=== PATIENT | male | born 1975 | race Caucasian/White ===

== ENCOUNTER 2017-04-01 08:33 | Inpatient (IN) | payer OTHER ==
[~2017-04-01] VITALS: Ht 185.4 cm; Wt 99.8 kg
[2017-04-01] MEDS ORDERED: LORAZEPAM 1 MG TABLET PO PRN (23:15)
[2017-04-01] MEDS ORDERED: MIRALAX 17 GM POWD.PACK PO PRN (23:15)
[2017-04-01] MEDS ORDERED: DICYCLOMINE HCL 20 MG TABLET PO PRN (23:15)
[2017-04-01] MEDS ORDERED: DOCUSATE SODIUM 250 MG CAPSULE PO PRN (23:15)
[2017-04-01] MEDS ORDERED: ONDANSETRON 4 MG/2 ML VIAL IM PRN (23:15)
[2017-04-01] MEDS ORDERED: MAG HYDROX/AL HYDROX/SIMETH 30 ML LIQUID UDC PO PRN (23:15)
[2017-04-01] MEDS ORDERED: diphenhydrAMINE 50 MG CAPSULE PO PRN (23:15)
[2017-04-01] MEDS ORDERED: LOPERAMIDE HCL 2 MG CAPSULE PO PRN ×2 (23:15)
[2017-04-01] MEDS ORDERED: BUPRENORPHINE HCL 2 MG TAB.SUBL SL PRN (23:15)
[2017-04-01] MEDS ORDERED: ONDANSETRON ODT 4 MG TAB.RAPDIS SL PRN (23:15)
[2017-04-01] MEDS ORDERED: MAGNESIUM HYDROXIDE 30 ML LIQUID UDC PO PRN (23:15)
[2017-04-01 23:30] VITALS: BP 148/88
--- NOTE | 2017-04-01 23:30 | NUR ---
Intake Assessment Assessment done at intake office. Patient is alert & oriented x4. Patient is ambulatory and wears a prosthetic leg on his right leg. Patient observed to be steady when walking. Speech is clear and audible. Patient does not look intoxicated. Pt appears calm & cooperative during interviews. Vitals noted B/P 148/88, ND 80, RR 18, Temp 98.5, O2Sat 98%. Pt is here for Opiate dependence. Patient has Anxiety, Depression & White Coat Syndrome. No seizure history noted. Pt denies any food and drug allergies. Patient brought home medications. Explained to pt unit protocols as well as handling and destruction any controlled substances/prescriptions brought to the facility. Patient verbalized understanding.
[2017-04-01 23:41] LABS: BASOPHILS # (AUTO) 0.1 K/uL (0.0-8.0); BASOPHILS % (AUTO) 0.7 % (0.0-2.0); EOSINOPHILS # (AUTO) 0.1 K/uL (0.0-0.7); EOSINOPHILS % (AUTO) 1.2 % (0.0-7.0); HEMATOCRIT 41.9 % (36.7-47.1); HEMOGLOBIN 14.2 g/dL (12.5-16.3); LYMPHOCYTES # (AUTO) 3.8 K/uL (20.0-40.0); LYMPHOCYTES % (AUTO) 36.3 % (20.5-51.5); MEAN CORPUSCULAR HEMOGLOBIN 29.6 uug (23.8-33.4); MEAN CORPUSCULAR HGB CONC 34 g/dL (32.5-36.3); MEAN CORPUSCULAR VOLUME 87.2 fL (73.0-96.2); MONOCYTES # (AUTO) 0.6 K/uL (2.0-10.0); MONOCYTES % (AUTO) 5.8 % (0.0-11.0); NEUTROPHILS # (AUTO) 5.9 K/uL (1.8-8.9); PLATELET COUNT (AUTO) 246 K/uL (152-348); WHITE BLOOD COUNT (AUTO) 10.5 K/uL (3.6-10.2)
--- NOTE | 2017-04-02 | NUR ---
ADMISSION NOTE: Patient is a 41 y.o male admitted at [facility] at approximately 2347 pm of 04/01/17 for medically supervised withdrawal from Opiates. Body search done and skin check performed, no contraband found. Scratch noted on his left lower back. No bleeding noted. Pt is 6'1" tall and weighs 220 lbs in a standing scale. Pt is cooperative during assessment. Patient is oriented to floor unit and room. Patient follows a regular diet at home with no known food and drug allergies. Pt wishes to be full Code. Patient is alert & oriented x4, ambulatory with a steady gait. Patient wears a prosthesis on his right leg. Speech is clear and audible. Patient does not look anxious and he is cooperative during interview. No shortness of breath noted. Respiration even & unlabored. Abdomen soft & non-distended. Bowel sounds active in all four quadrants. No nausea/vomiting noted. Patient complains of 5/10 pain on his stump and mild body aches. Patient also complains of slight sweating & chills. No hand tremors noted. COWS 3 noted at this time. Patient noted with past medical history of Anxiety, Depression, Below the knee amputation (2006) & White Coat Syndome. Pt denies thoughts of suicide in the past. No suicide attempts noted. Pt currently denies SI/HI. Pt was able to provide urine sample for drug screen upon admission and is voiding clear yellow urine with no problems. Substance use: 1. Oxycontin- Pt has been taking Oxycontin for 10 years. Patient has been using 120mg daily for the past 5 days. Patient last took 30mg @ 9pm prior to admission. 2. Dilaudid- Pt has been using Dilaudid together with the Oxycontin for 10 years. In the past 4 weeks, patient has used Dilaudid 40mg daily alone but stopped using it 5 days ago and took Oxycontin. 3. Marijuana- Pt started smoking Marijuana since he was 15 years old. Patient smokes daily in an unspecified amount. Last smoke was yesterday 03/31/17. Patient reported that he has never been to treatment and that this is his 1st treatment. Patient denies being hospitalized in the last 30 days. Patient reports his longest period of sobriety was for 2-3 weeks 4 years ago. Patient reports symptoms when he does not use as anxiety, restless legs, pins & needles, jerking movement, body aches & nausea. Patient refused flu & pneumonia vaccines, educated patient risk & benefits but still refused. Urine drug screen came back positive for Opiates & Cannabinoids. Fall & Seizure precautions are in place. All needs attended & met. Safety precautions are in place. Bed locked in lowest position. Both side rails padded & up. Call light within pt's reach. Pt was seen by Dr. Olivarez at intake. Orders noted and carried out. Will continue to monitor patient.
[2017-04-02] MEDS ORDERED: LORAZEPAM 1 MG TABLET PO ONE (00:15)
[2017-04-02 00:24] LABS: ALANINE AMINOTRANSFERASE 30 U/L (16-63); ALKALINE PHOSPHATASE 95 U/L (50-136); ASPARTATE AMINOTRANSFERASE 16 U/L (15-37); BILIRUBIN,TOTAL 0.2 mg/dL (0.2-1.0); CARBON DIOXIDE 29 mmol/L (21-32); CHLORIDE 101 mmol/L (98-107); CREATININE 1.1 mg/dL (0.6-1.3); GLUCOSE 88 mg/dL (74-106); MAGNESIUM 1.8 mg/dL (1.8-2.4); POTASSIUM 4.3 mmol/L (3.5-5.1); TOTAL PROTEIN, SERUM 7.5 g/dL (6.4-8.2); UREA NITROGEN, BLOOD 18 mg/dL (7-18)
[2017-04-02 00:35] LABS: ETHANOL < 3 MG/DL (0-0)
[2017-04-02 01:23] LABS: *AMPHETAMINE, URINE NEGATIVE (NEGATIVE); *BARBITURATE, URINE NEGATIVE (NEGATIVE); *CANNABINOID, URINE POSITIVE (NEGATIVE); *COCCAINE, URINE NEGATIVE (NEGATIVE); *OPIATE, URINE POSITIVE (NEGATIVE); *PHENCYCLIDINE SCREEN,URINE NEGATIVE (NEGATIVE)
[2017-04-02] MEDS ORDERED: LORAZEPAM 1 MG TABLET ONE (01:30)
[2017-04-02] MEDS ORDERED: OXYC30TA86 PO (02:33)
[2017-04-02] MEDS ORDERED: METH-406 PO (02:33)
[2017-04-02] MEDS ORDERED: GABA800T2 PO (02:33)
[2017-04-02] MEDS ORDERED: DICL75TA5 PO (02:33)
[2017-04-02] MEDS ORDERED: HYDR-3026 PO (02:33)
[2017-04-02] MEDS ORDERED: TRAZ300T2 PO (02:33)
[2017-04-02 04:00] VITALS: BP 136/88
--- NOTE | 2017-04-02 07:07 | NUR ---
End of Shift Note: Patient is a 41 y.o male admitted last night at approximately 2347 of 04/01/17 for Opiate dependence. Patient has PMHx of BKA, Anxiety, Depression & White Coat Syndrome. Patient is on a regular diet with no known food and drug allergies. Full Code status. Scratch noted on his right lower back. Patient placed on a 5-day Subutex taper to be started today. Last COWS is 3. Patient received a one time dose of Ativan for anxiety with no adverse reactions noted. Closely monitor symptoms of withdrawal. Vitals monitored closely and noted within normal limits. Patient remained stable throughout my shift. Patient shows no s/s of distress. Patient still asleep in bed. Patient slept for a total of 1 hour. Fluid intake 550ml. Encourage pt to increase fluid intake. Voided 1x with no bowel movement. All needs attended & met. Safety measures in place. Will continue to monitor patient.
--- NOTE | 2017-04-02 07:30 | NUR ---
START OF SHIFT Pt 41 y/o male admitted for opiate dependence. Pt received in room on bed with eyes closed resting, but easily arousable to name. Pt alert and oriented to name, place, and time. Perrla. Skin warm and dry to touch. Respirations even and unlabored. No hand tremors noted. Pt appears slightly irritable and anxious this morning. It was reported that pt slept for 7 hours last night. Bed on lowest position with side rails x 2 up for safety. Call light within reach. No distress noted at this time. Addendum: 04/02/17 at 0822 by CAROL CHOI RN correction incorrect hours of sleep It was reported that pt slept for 1 hour last night.
[2017-04-02 08:00] VITALS: BP 160/94
[2017-04-02] MEDS ORDERED: TUBERCULIN,PURIF.PROT.DERIV. 5 TU/0.1 ML TEST ID ONE (09:00)
[2017-04-02] MEDS ORDERED: BUPRENORPHINE HCL 2 MG TAB.SUBL SL SCH (09:00)
[2017-04-02] MEDS: CLONIDINE HCL 0.1 MG TABLET PO PRN ×2 (09:22→20:30)
[2017-04-02] MEDS: GABAPENTIN 800MG TABLET PO SCH ×4 (09:22→20:44)
--- NOTE | 2017-04-02 09:35 | NUR ---
PRN Pt with nf=510/94. Catapres po prn per MD order given and tolerated well.
--- NOTE | 2017-04-02 09:36 | NUR ---
SUBUTEX Subutex held. Pt with cows=4.
--- NOTE | 2017-04-02 10:35 | NUR ---
PRN EVAL Pt with ug=278/68
--- NOTE | 2017-04-02 10:35 | NUR ---
ANANTH MARTINEZ Pt with do=860/74 Addendum: 04/02/17 at 1510 by CAROL CHOI RN incorrect pt
[2017-04-02 12:00] VITALS: BP 120/74
[2017-04-02] MEDS ORDERED: HYDROXYZINE PAMOATE 25 MG CAPSULE PO PRN (13:00)
[2017-04-02] MEDS ORDERED: TRAZODONE HCL 300 MG PO SCH (13:00)
--- NOTE | 2017-04-02 14:52 | NUR ---
Therapist prompted client to come to group today, client agreed
[2017-04-02 16:00] VITALS: BP 134/88
--- NOTE | 2017-04-02 18:40 | NUR ---
END OF SHIFT Pt 41 y/o male admitted for opiate dependence. Pt alert and oriented to name, place, and time. Perrla. Skin warm and slightly moist to touch. Respirations even and unlabored. No hand tremors noted. Pt observed mostly isolative to room this morning, but was in recreation room throughout the day. Pt attended group activity. Pt was seen by MD today with instruction to continue to monitor for withdrawal symptoms. Pt medication compliant and tolerated well. No ASE noted.
[2017-04-02 20:00] VITALS: BP 160/97
--- NOTE | 2017-04-02 20:00 | NUR ---
Start of Shift Pt is a 41 year old male admitted for Opiate dependence, placed on 5 day Subutex taper. Pt reported using Oxycontin 120mg/daily x5 days, Dilaudid 40mg/daily x4 weeks and marijuana unspecified amount. PMH: below the knee amputation (chronic leg pain), anxiety, depression and white coat syndrome. NKA, regular diet, fall precautions and full code. Upon assessment, pt presents with anxiety, skin is mildly flushed, nose stuffy, muscle aches, respirations even/unlabored, denies SOB/chest pain, medications due, safety measures in place, call light within reach, side rails up x2, bed locked and in low position. Will continue to monitor.
[2017-04-02] MEDS: METHOCARBAMOL 750 MG TABLET PO PRN (20:29)
--- NOTE | 2017-04-02 20:30 | NUR ---
PRN Administration Pt reports feeling anxious, restless with muscle aches throughout body with mild nausea. BP 160/97. Clonidine 0.1mg PRN, Robaxin 750mg PRN and Zofran PO 4mg PRN administered. Safety measures in place, will continue to monitor.
[2017-04-02 21:30] VITALS: BP 148/89
--- NOTE | 2017-04-02 21:30 | NUR ---
PRN Reassessment BP 148/89, pulse 76. Pt reports relief of nausea and feels better. Needs met, safety measures in place, will continue to monitor.
[2017-04-02] MEDS: DICLOFENAC 75MG PO PRN (23:09)
[2017-04-02] MEDS: TRAZODONE 100 MG TABLET PO PRN (23:10)
[2017-04-02] MEDS: HYDROXYZINE PAMOATE 25 MG CAPSULE PO PRN (23:10)
--- NOTE | 2017-04-02 23:10 | NUR ---
PRN Administration Pt reports anxiety, within right knee prosthesis rated 8-9/10 and requests sleeping aid. Vistaril 25mg PRN, Diclofenac 75mg PRN and Trazodone 300mg PRN administered. Safety measures in place, will continue to monitor.
[2017-04-03] VITALS: BP 143/95
--- NOTE | 2017-04-03 00:10 | NUR ---
PRN Reassessment Upon reassessment, pt is sleeping, respirations even/unlabored. Safety measures in place, will continue to monitor.
[2017-04-03 04:00] VITALS: BP 141/89
--- NOTE | 2017-04-03 04:00 | NUR ---
COWS deferred d/t sleeping, to assess while pt is awake as ordered. BP 141/87, pulse 78, resp 16, SpO2 99% room air, temp [address], will continue to monitor.
--- NOTE | 2017-04-03 07:00 | NUR ---
End of Shift Pt is a 41 year old male admitted for Opiate dependence, placed on 5 day Subutex taper. Pt reported using Oxycontin 120mg/daily x5 days, Dilaudid 40mg/daily x4 weeks and marijuana unspecified amount. PMH: below the knee amputation (chronic leg pain), anxiety, depression and white coat syndrome. NKA, regular diet, fall precautions and full code. During shift, pt presented with anxiety, skin mildly flushed, nose stuffy, muscle aches Clonidine 0.1mg PRN, Robaxin 750mg PRN and Zofran PO 4mg PRN administered. Diclofenac 75mg PRN, Vistaril 25mg PRN and Trazodone 300mg PRN administered for pain in right knee prosthesis and sleep. Latest COWS 6. Pt slept for 7 hours, intake of 1100 ml PO, voids x2 and stool x0. Safety measures in place, call light within reach, side rails up x2, bed locked and in low position. Endorsed to day shift nurse.
--- NOTE | 2017-04-03 07:55 | NUR ---
START OF SHIFT RECEIVED PT RESTING IN BED, A/O X4, RESPIRATIONS EVEN AND UNLABORED. PT REPORTS HAVING STOMACH CRAMPS, DIARRHEA, RUNNING NOSE, FEELING ALTERNATING HOT AND COLD, RESTLESSNESS. PT REPORTS HAVING PAIN THE IN BKA RIGHT KNEE PROSTHESIS AREA. PT APPEARS AGITATED, FACE IS MILDLY FLUSHED, PILORECTION OF THE SKIN SEEN. ENCOURAGED PT TO CONSUME MORE FLUIDS TO FACILITATE IN DETOX PROCESS. SIDE RAILS UP X2, BED IN LOWEST POSITION. CALL LIGHT WITHIN REACH. SAFETY MEASURES TAKEN. WILL CONTINUE TO MONITOR AND PROVIDE SUPPORT.
[2017-04-03 08:00] VITALS: BP 148/97
[2017-04-03] MEDS: GABAPENTIN 800MG TABLET PO SCH ×4 (08:35→22:29)
[2017-04-03] MEDS: DICLOFENAC 75MG PO PRN (08:36)
--- NOTE | 2017-04-03 08:36 | NUR ---
PRN PT C/O PAIN IN THE RIGHT LEG; BKA AREA. 910 PAIN. ADMINISTERED DICLOFENAC 75 MG PO PRN AT 0836.
[2017-04-03] MEDS: CLONIDINE HCL 0.1 MG TABLET PO PRN (08:49)
--- NOTE | 2017-04-03 08:49 | NUR ---
PRN PT C/O OF DIAPHORESIS, ANXIETY, RESTLESSNESS. CLONIDINE 0.1 MG PO PRN GIVEN. SAFETY MEASURES TAKEN. WILL CONTINUE TO MONITOR.
[2017-04-03] MEDS ORDERED: BUPRENORPHINE HCL 2 MG TAB.SUBL SL SCH ×2 (09:00→15:00)
--- NOTE | 2017-04-03 09:42 | NUR ---
therapist prompted client to attend groups today, client agreed to attend.
--- NOTE | 2017-04-03 09:49 | NUR ---
REASSESSMENT PT STATED DICLOFENAC AND CLONIDINE HELPED WITH HIS PAIN AND S/S OF W/D. WILL CONTINUE TO MONITOR.
[2017-04-03] MEDS ORDERED: diphenhydrAMINE 50 MG CAPSULE PO PRN (11:30)
[2017-04-03 12:00] VITALS: BP 129/91
[2017-04-03 12:08] LABS: HEPATITIS B SURFACE AG Negative (Negative)
[2017-04-03] MEDS: METHOCARBAMOL 750 MG TABLET PO PRN (12:39)
--- NOTE | 2017-04-03 12:39 | NUR ---
PRN PT C/O OF GENERALIZED BODY AND MUSCLE ACHES; REQUESTED ROBAXIN. ADMINISTERED ROBAXIN 750 MG PO PRN. WILL CONTINUE TO MONITOR.
--- NOTE | 2017-04-03 13:39 | NUR ---
REASSESSMENT PT STATED THE ROBAXIN WAS EFFECTIVE. WILL CONTINUE TO MONITOR AND PROVIDE SUPPORT.
[2017-04-03] MEDS: BUPRENORPHINE HCL 2 MG TAB.SUBL SL SCH ×2 (14:29→22:29)
[2017-04-03 16:00] VITALS: BP 135/87
--- NOTE | 2017-04-03 19:30 | NUR ---
END OF SHIFT PT IS A/O X4, RESPIRATIONS EVEN AND UNLABORED. PT REPORTS HAVING MILD STOMACH CRAMPS AND REPORTS HAVING PAIN THE IN BKA RIGHT KNEE PROSTHESIS AREA 4/10 PAIN. PT REQUESTED TO HAVE A HEATING PAD AND A K-PAD WAS PROVIDED TO PT DURING SHIFT. PT STARTED THE SUBUTEX TAPER TODAY. PT LAST COWS 6. ENCOURAGED PT TO CONSUME MORE FLUIDS TO FACILITATE IN DETOX PROCESS. SIDE RAILS UP X2, BED IN LOWEST POSITION. CALL LIGHT WITHIN REACH. SAFETY MEASURES TAKEN. WILL GIVE ALL PERTINENT DATA AND ENDORSEMENT TO CAR BUILDER NURSE.
--- NOTE | 2017-04-03 19:31 | NUR ---
Start of Shift Note: Patient is a 41 y.o male admitted on 04/01/17 for Opiate dependence. Patient has PMHx of BKA, Anxiety, Depression & White Coat Syndrome. Patient is on a regular diet with no known food and drug allergies. Full Code status. Scratch noted on his right lower back. Patient started today on a 5-day Subutex taper and tolerating well. No adverse reactions noted. Last COWS 6. Patient received PRN Robaxin during day shift. Patient is alert & oriented x4. No shortness of breath noted. Respiration even & unlabored. Abdomen soft & non-distended. No nausea/vomiting noted. Patient complained of chills, sweating, slight body aches, & slight anxiety. Patient also complained of 7/10 on his right stump. Hand tremors felt but not seen. Safety precautions are in place. Bed locked in lowest position. Both side rails up. Call light within pts reach. Will continue to monitor patient.
[2017-04-03 20:00] VITALS: BP 135/87
[2017-04-04] VITALS: BP 157/90
[2017-04-04] MEDS: HYDROXYZINE PAMOATE 25 MG CAPSULE PO PRN (00:37)
[2017-04-04] MEDS: KETOROLAC TROMETHAMINE 30 MG INJ IM PRN ×2 (00:37→21:53)
--- NOTE | 2017-04-04 00:37 | NUR ---
PRN Administration: Patient complains of 8/10 pain on his right stump and anxiety. Patient also unable to fall asleep d/t pain. Patient noted to be restless with facial grimacing noted. PRN Toradol IM, Trazodone & Vistaril administered as ordered. Will continue for effectiveness.
[2017-04-04] MEDS: TRAZODONE 100 MG TABLET PO PRN (00:38)
--- NOTE | 2017-04-04 01:37 | NUR ---
PRN Reassessment Patient asleep in bed and appears comfortable. No facial grimacing noted. PRN medication effective. Will continue to monitor patient.
--- NOTE | 2017-04-04 07:04 | NUR ---
End of Shift Note: Patient had an uneventful night. Patient started yesterday with his Subutex taper and is tolerating well. No adverse reaction noted. Patient presented with right stump pain, anxiety, sweating, chills & slight hand tremors. Pt was medicated with Toradol, Vistaril & Trazodone and was effective. Last COWS 5 noted. Closely monitor symptoms of withdrawal. Vitals monitored closely and noted within normal limits. Patient remained stable throughout my shift. Patient shows no s/s of distress. Patient still asleep in bed. Patient slept for a total of 4 hour. Fluid intake 1000ml. Encourage pt to increase fluid intake. Voided 2x with no bowel movement. All needs attended & met. Safety measures in place. Will continue to monitor patient.
--- NOTE | 2017-04-04 07:59 | NUR ---
Start of shift note; Received report from night nurse. Patient is a 41 year old male admitted on 04/01/17 for Opiate dependence. Patient was placed on a 5 day Subutex, no adverse reactions noted. Patient's last COWS is 5 per endorsement. Patient reported history of below the knee amputation,anxiety, depression, white coat syndrome. Patient was placed on a 5 day Subutex taper. Patient is on a regular diet, NKA, full code status. Patient is on fall and seizure precaution. Bed in lowest position, call light within reach.
[2017-04-04 08:00] VITALS: BP 122/69
[2017-04-04] MEDS: FAMOTIDINE 20 MG TABLET PO SCH (08:48)
[2017-04-04] MEDS: GABAPENTIN 800MG TABLET PO SCH (08:48)
[2017-04-04] MEDS ORDERED: BUPRENORPHINE HCL 2 MG TAB.SUBL SL SCH ×2 (09:00)
[2017-04-04 12:00] VITALS: BP 126/80
[2017-04-04] MEDS: GABAPENTIN 300 MG CAPSULE PO SCH ×3 (12:20→21:41)
[2017-04-04] MEDS: BUPRENORPHINE HCL 2 MG TAB.SUBL SL SCH ×2 (14:37→21:41)
[2017-04-04] MEDS: BACLOFEN 10 MG TABLET PO SCH ×2 (14:37→21:41)
[2017-04-04 16:00] VITALS: BP 137/70
[2017-04-04] MEDS: METHOCARBAMOL 750 MG TABLET PO PRN (18:45)
--- NOTE | 2017-04-04 18:45 | NUR ---
PRN medication; Patient is complaining of muscle aches. PRN Robaxin 750mg PO given for muscle aches. Will endorse to night nurse for re-assessment.
--- NOTE | 2017-04-04 19:02 | NUR ---
End of shift note; Patient is AOx4. nurse. Patient is a 41 year old male admitted on 04/01/17 for Opiate dependence. Patient was placed on a 5 day Subutex, no adverse reactions noted. Patient's last COWS is 5 per endorsement. Patient reported history of below the knee amputation,anxiety, depression, white coat syndrome. Patient was placed on a 5 day Subutex taper. Patient is on a regular diet, NKA, full code status. Patient is on fall and seizure precaution. Patient remained compliant with treatment plan and medication regime. All safety measures secured. Met all needs.
--- NOTE | 2017-04-04 19:15 | NUR ---
START OF SHIFT Received 41 year old male patient admitted on 04/01/17 for opiate and marijuana dependency. Pt is full code with NKA. He reports a PMHx of below the knee amputation (right leg), anxiety, depression, and white coat syndrome. He reports using Oxycontin 120mg daily for 5 days. Last dose was 30 mg on 04/01/17. Dilaudid 40 mg daily for 4 weeks. Last dose was 40 mg on 03/29/17. And Marijuana daily of unspecified amount. He is placed on a 5 day Subutex taper and tolerating well. Pt noted with Right leg below the knee amputation. No redness or swelling noted. Per endorsement, he received PRN Robaxin. Pt is alert and oriented x4, breathing is even and unlabored. Safety measures in place. Will continue to monitor.
--- NOTE | 2017-04-04 19:45 | NUR ---
PRN REASSESSMENT Pt reports PRN Robaxin was effective. Pt reports muscle pain decreased. Will monitor.
[2017-04-04 20:00] VITALS: BP 152/106
[2017-04-04] MEDS: ACETAMINOPHEN 325 MG TABLET PO PRN (20:19)
--- NOTE | 2017-04-04 20:19 | NUR ---
PRN TYLENOL Pt noted with temperature of 101.4. PRN Tylenol administered as ordered. Will continue to monitor.
[2017-04-04] MEDS: CLONIDINE HCL 0.1 MG TABLET PO SCH (20:20)
[2017-04-04] MEDS ORDERED: IV NS 1000 ML 1,000 ML IV ONE (20:30)
--- NOTE | 2017-04-04 20:30 | NUR ---
MD COMMUNICATION Dr. Olivarez was notified regarding pt's fever of 101.4. New orders for for isolation, IV insertion, IV fluids and antibiotics, CXR, and labs noted and carried out. Will monitor.
--- NOTE | 2017-04-04 21:00 | NUR ---
IV INSERTION Inserted 22 gauge IV on right hand, patent and flushing well. Will monitor.
--- NOTE | 2017-04-04 21:19 | NUR ---
PRN TYLENOL REASSESSMENT PRN medication effective. Pt noted with decreased temperature of 100.8. Will monitor.
[2017-04-04 21:20] VITALS: BP 145/88
[2017-04-04 21:29] LABS: POTASSIUM 4.2 mmol/L (3.5-5.1)
[2017-04-04 21:35] LABS: BASOPHILS % (AUTO) 0.3 % (0.0-2.0); EOSINOPHILS # (AUTO) 0.1 K/uL (0.0-0.7); EOSINOPHILS % (AUTO) 1.7 % (0.0-7.0); HEMATOCRIT 38.5 % (36.7-47.1); HEMOGLOBIN 13.2 g/dL (12.5-16.3); LYMPHOCYTES % (AUTO) 12.1 % (20.5-51.5); MEAN CORPUSCULAR HEMOGLOBIN 29.7 uug (23.8-33.4); MEAN CORPUSCULAR HGB CONC 34 g/dL (32.5-36.3); MEAN CORPUSCULAR VOLUME 86.8 fL (73.0-96.2); MONOCYTES # (AUTO) 0.8 K/uL (2.0-10.0); MONOCYTES % (AUTO) 9.8 % (0.0-11.0); NEUTROPHILS # (AUTO) 6.5 K/uL (1.8-8.9); NEUTROPHILS % (AUTO) 76.1 % (38.5-71.5); PLATELET COUNT (AUTO) 205 K/uL (152-348); RED BLOOD CELL COUNT(AUTO) 4.43 MIL/uL (4.06-5.63); WHITE BLOOD COUNT (AUTO) 8.6 K/uL (3.6-10.2)
[2017-04-04] MEDS: QUETIAPINE FUMARATE 25 MG TABLET PO SCH (21:41)
--- NOTE | 2017-04-04 21:53 | NUR ---
PRN TORADOL Pt complains of 6/10 throbbing/tingling pain on right BKA. PRN Toradol administered as ordered. Will monitor effectiveness.
[2017-04-04] MEDS ORDERED: PIPERACILLIN/TAZOBACTAM/D5W 50 ML IV ONE (21:58)
[2017-04-04] MEDS: OSELTAMIVIR PHOSPHATE 75 MG CAPSULE PO SCH (22:21)
[2017-04-04] MEDS: PIPERACILLIN/TAZOBACTAM/D5W 3.375 G in PREMIXED 1 EACH IV SCH (22:22)
[2017-04-04] MEDS ORDERED: OSELTAMIVIR PHOSPHATE 75 MG CAPSULE ONE (22:26)
--- NOTE | 2017-04-04 22:53 | NUR ---
PRN TORADOL REASSESSMENT PRN medication effective. Pt reports pain decreased to 4/10. Will monitor.
--- NOTE | 2017-04-05 | NUR ---
VITALS REFUSED, COWS DEFERRED 0000 vitals refused. COWS deferred d/t pt lying in bed with eyes closed noted to be asleep. Breathing even and unlabored. Will monitor.
--- NOTE | 2017-04-05 04:00 | NUR ---
VITALS REFUSED, COWS DEFERRED 0000 vitals refused. COWS deferred d/t pt lying in bed with eyes closed noted to be asleep. Breathing even and unlabored. T:99.1. Will monitor.
[2017-04-05] MEDS ORDERED: PIPERACILLIN SODIUM/TAZO 3.375 GM VIAL ONE (05:55)
[2017-04-05] MEDS: PIPERACILLIN/TAZOBACTAM/D5W 3.375 G in PREMIXED 1 EACH IV SCH ×3 (06:12→23:05)
--- NOTE | 2017-04-05 07:08 | NUR ---
END OF SHIFT Pt is a 41 year old male patient admitted on 04/01/17 for opiate and marijuana dependency. Pt is full code with NKA. He continues on a 5 day Subutex taper and tolerating well. Pt with increased temperature of 101.4 Dr. Olivarez was notified with new orders for CXR, labs, IV fluids and antibiotics. He received PRN Tylenol at 2019 and PRN Toradol at 2153. He slept a total of 7 hrs, Intake:4052mL Void:x8, BM:0, COWS:5, Pt with IV 22 gauge on left hand patent and flushing well. Pt remains alert and oriented x4, breathing is even and unlabored. Safety measures in place. Endorsed to AM shift.
--- NOTE | 2017-04-05 07:30 | NUR ---
START OF SHIFT Pt 41 y/o male admitted for opiate dependence. Pt received in room on bed with eyes closed resting, but easily arousable to name. Pt alert and oriented to name, place, and time. Perrla. Skin warm and slightly moist to touch. Respirations even and unlabored. Bilateral hand tremors noted. Pt with peripheral IV on left hand intact and in place with no redness or infiltration noted and is not hot to touch. It was reported that pt slept fro 7 hours last night. Bed on lowest position with side rails x2 up for safety. Call light within reach. No distress noted at this time.
[2017-04-05 08:00] VITALS: BP 143/93
[2017-04-05] MEDS: BACLOFEN 10 MG TABLET PO SCH ×2 (08:48→14:12)
[2017-04-05] MEDS: OSELTAMIVIR PHOSPHATE 75 MG CAPSULE PO SCH ×2 (08:48→21:36)
[2017-04-05] MEDS: ACETAMINOPHEN 325 MG TABLET PO PRN (08:48)
[2017-04-05] MEDS: VANCOMYCIN IV 1,500 MG in IV DEXTROSE 5% 500 ML IV SCH ×2 (08:48→18:58)
[2017-04-05] MEDS: GABAPENTIN 300 MG CAPSULE PO SCH ×4 (08:49→21:36)
[2017-04-05] MEDS: FAMOTIDINE 20 MG TABLET PO SCH (08:49)
[2017-04-05] MEDS: CLONIDINE HCL 0.1 MG TABLET PO SCH ×2 (08:49→21:36)
[2017-04-05] MEDS: BUPRENORPHINE HCL 2 MG TAB.SUBL SL SCH ×3 (08:49→21:37)
[2017-04-05] MEDS ORDERED: BUPRENORPHINE HCL 2 MG TAB.SUBL SL SCH (09:00)
--- NOTE | 2017-04-05 09:02 | NUR ---
PRN pt with c/o headache. Acetaminophen po prn per MD order given and tolerated well.
--- NOTE | 2017-04-05 10:02 | NUR ---
PRN NARGISAL Pt states does not have any headache at this time.
[2017-04-05 12:00] VITALS: BP 142/93
[2017-04-05 16:00] VITALS: BP 169/105
--- NOTE | 2017-04-05 16:08 | NUR ---
Clinical Pharmacy Note: Vancomycin pharmacy to dose Subjective: To start vancomycin in this 41 y/o gentleman for indication of suspected infection. Objective: height 185 cm weight 99 kg BUN 13 Scr 1.0 Wbc 8.6 temp 99.1 Assessment/Plan Will start regimen of 1500mg q10 for estimated trough of 15.17. First dose today at 0900. Trough ordered before 4th dose, due tomorrow at 1430. Will check trough tomorrow and adjust if needed. Will follow
[2017-04-05] MEDS: CLONIDINE HCL 0.1 MG TABLET PO PRN (17:08)
--- NOTE | 2017-04-05 17:08 | NUR ---
PRN Medication; Patient's BP is elevated 168/105. PRN Clonidine 0.1mg PO given for BP > 160/100. Will continue to monitor patient. Primary nurse notified.
--- NOTE | 2017-04-05 18:08 | NUR ---
PRN EVAL Pt with pl=087/64.
--- NOTE | 2017-04-05 18:38 | NUR ---
END OF SHIFT Pt 41 y/o male admitted for opiate dependence. Pt alert and oriented to name, place, and time. Perrla. Skin warm and slightly moist to touch. Respirations even and unlabored. Bilateral hand tremors noted slightly. Pt with some periods of anxiety this morning. Pt with peripheral IV on left upper arm intact and in place, patent, with no redness and is not hot to touch. Pt right BKA stump. Pt observed in room throughout the day. Pt excused from group activity today. Pt was seen by MD today. Pt medication compliant and tolerated well. No ASE noted. Bed on lowest position with side rails x2 up for safety. Call light within reach. No distress noted at this time.
--- NOTE | 2017-04-05 19:15 | NUR ---
Start of Shift Note: Patient is a 41 y.o male admitted on 04/01/17 for Opiate dependence. Patient has PMHx of BKA, Anxiety, Depression & White Coat Syndrome. Patient is on a regular diet with no known food and drug allergies. Full Code status. Scratch noted on his right lower back. Patient is on a 5-day Subutex taper and tolerating well. No adverse reactions noted. Last COWS 6. Patient received PRN Clonidine & Tylenol during day shift. Patient has 22gauge IV on left upper arm patent and intact with no s/s of infiltration. Patient is receiving IV Zosyn & Vancomycin for possible stump infection. Patient on isolation. Patient is on Patient is alert & oriented x4. No shortness of breath noted. Respiration even & unlabored. Abdomen soft & non-distended. No nausea/vomiting noted. Patient complained slight body aches, & slight anxiety. Patient also complained of 4/10 pain on his right stump. Hand tremors felt but not seen. Safety precautions are in place. Bed locked in lowest position. Both side rails up. Call light within pts reach. Will continue to monitor patient.
[2017-04-05 20:00] VITALS: BP 147/91
[2017-04-05] MEDS: QUETIAPINE FUMARATE 25 MG TABLET PO SCH (21:36)
[2017-04-05] MEDS: LACTOBACILLUS RHAMNOSUS GG 1 EACH CAPSULE PO SCH (21:36)
[2017-04-05] MEDS: BACLOFEN 20 MG TABLET PO SCH (21:36)
[2017-04-06] MEDS: PIPERACILLIN/TAZOBACTAM/D5W 3.375 G in PREMIXED 1 EACH IV SCH (05:34)
[2017-04-06] MEDS: ACETAMINOPHEN 325 MG TABLET PO PRN (05:38)
--- NOTE | 2017-04-06 05:38 | NUR ---
PRN Motrin Patient complained of mild headache. PRN Motrin administered as ordered. Will monitor for effectiveness.
[2017-04-06] MEDS: VANCOMYCIN IV 1,500 MG in IV DEXTROSE 5% 500 ML IV SCH (06:30)
--- NOTE | 2017-04-06 07:25 | NUR ---
End of Shift Note: Patient had an uneventful night. Patient continues on a 5-day Subutex taper and is tolerating well. No adverse reaction noted. Patient is a 41 y.o male admitted for Opiate dependence. Patient has 22gauge IV on left upper arm patent and intact with no s/s of infiltration. Patient is receiving IV Zosyn & Vancomycin for possible stump infection. Patient on isolation. Patient did not receive any PRN medications during my shift. Last COWS 4. Closely monitor symptoms of withdrawal. Vitals monitored closely and noted within normal limits. Patient with no episode of hyperthermia during my shift. Patient remained stable. Patient shows no s/s of distress. Patient slept for a total of 6 hour. Fluid intake 4500ml. Voided 10x with 2x bowel movement. All needs attended & met. Safety measures in place. Will continue to monitor patient.
[2017-04-06 07:34] LABS: BASOPHILS % (AUTO) 0.9 % (0.0-2.0); EOSINOPHILS # (AUTO) 0.2 K/uL (0.0-0.7); HEMATOCRIT 41.9 % (36.7-47.1); HEMOGLOBIN 14.2 g/dL (12.5-16.3); LYMPHOCYTES % (AUTO) 37.6 % (20.5-51.5); MEAN CORPUSCULAR HEMOGLOBIN 29.4 uug (23.8-33.4); MEAN CORPUSCULAR HGB CONC 34 g/dL (32.5-36.3); MEAN CORPUSCULAR VOLUME 86.7 fL (73.0-96.2); MONOCYTES # (AUTO) 0.7 K/uL (2.0-10.0); MONOCYTES % (AUTO) 14.3 % (0.0-11.0); NEUTROPHILS # (AUTO) 2.3 K/uL (1.8-8.9); NEUTROPHILS % (AUTO) 44.2 % (38.5-71.5); PLATELET COUNT (AUTO) 191 K/uL (152-348); RED BLOOD CELL COUNT(AUTO) 4.83 MIL/uL (4.06-5.63); WHITE BLOOD COUNT (AUTO) 5.2 K/uL (3.6-10.2)
[2017-04-06 07:43] LABS: MAGNESIUM 1.8 mg/dL (1.8-2.4); POTASSIUM 3.9 mmol/L (3.5-5.1)
[2017-04-06 08:00] VITALS: BP 134/87
--- NOTE | 2017-04-06 08:30 | NUR ---
Nursing notes: Received pt in bed awake, alert, oriented x4, continue subutex x5 day no a/r noted, currently on atb/iv, hl to [place] [address], bag of vanco still hanging not finished and not connected to pt, ih flushed and reconnected, pt is afebribe no s/s of withdraws, will continue monitoring, encourage pos, no distress.
[2017-04-06] MEDS: GABAPENTIN 300 MG CAPSULE PO SCH ×4 (08:40→22:01)
[2017-04-06] MEDS: CLONIDINE HCL 0.1 MG TABLET PO SCH ×3 (08:42→22:01)
[2017-04-06] MEDS: BACLOFEN 20 MG TABLET PO SCH ×3 (08:42→22:01)
[2017-04-06] MEDS: LACTOBACILLUS RHAMNOSUS GG 1 EACH CAPSULE PO SCH ×2 (08:42→22:01)
[2017-04-06] MEDS: BUPRENORPHINE HCL 2 MG TAB.SUBL SL SCH ×2 (08:43→22:01)
[2017-04-06] MEDS ORDERED: BUPRENORPHINE HCL 2 MG TAB.SUBL SL SCH (09:00)
[2017-04-06] MEDS: FAMOTIDINE 20 MG TABLET PO SCH (10:09)
[2017-04-06] MEDS: OSELTAMIVIR PHOSPHATE 75 MG CAPSULE PO SCH ×2 (11:32→22:00)
[2017-04-06 12:00] VITALS: BP 162/104
--- NOTE | 2017-04-06 13:35 | NUR ---
Nursing notes: spoke with Dr Olivarez since iv/atb dc and labs result neg, pt request to be off isolation, md reply ask infection disease personal, and we will, pt is stable afebrile, no c/o sob nor respiratory distress, pt is pleasant follow direction, no tremors, some anxiety noted since pt have to stay in room d/t isolation, will continue to monitor.
--- NOTE | 2017-04-06 13:46 | NUR ---
Infection cntrol nurse was call d/t pt wants to be off droplet isolation , md denton atb/iv and labs neg awaiting for call back, pt in room, afebrile no distress.
[2017-04-06 16:51] VITALS: BP 131/93
--- NOTE | 2017-04-06 17:56 | NUR ---
NURSING END NOTE: PT IN ROOM CONTINUE DROPLET ISOLATION, COMPLIENT WITH MEDS, ENCOURAGE OS FLUIDS, COWS 2, NO DISTRESS.
--- NOTE | 2017-04-06 19:15 | NUR ---
Start of Shift Note: Patient is a 41 y.o male admitted on 04/01/17 for Opiate dependence. Patient has PMHx of BKA, Anxiety, Depression & White Coat Syndrome. Patient is on a regular diet with no known food and drug allergies. Full Code status. Scratch noted on his right lower back. Patient continues on a 5-day Subutex taper and tolerating well. No adverse reactions noted. Last COWS 2. No PRn medication given day shift. Patient still on isolation. IV ATB discontinued. Patient is alert & oriented x4. No shortness of breath noted. Respiration even & unlabored. Abdomen soft & non-distended. No nausea/vomiting noted. Patient complained of diarrhea, & slight anxiety. Patient also complained of 4/10 pain on his right stump. Hand tremors felt but not seen. Safety precautions are in place. Bed locked in lowest position. Both side rails up. Call light within pts reach. Will continue to monitor patient.
[2017-04-06 20:00] VITALS: BP 126/97
[2017-04-06] MEDS: QUETIAPINE FUMARATE 25 MG TABLET PO SCH (22:02)
--- NOTE | 2017-04-06 22:02 | NUR ---
PRN Immodium Patient complained of diarrhea. Pt noted with 2 episode of loose BM. PRN Immodium 4mg administered as ordered. Will monitor for effectiveness.
--- NOTE | 2017-04-07 07:03 | NUR ---
End of Shift Note: Patient had an uneventful night. Patient continues on a 5-day Subutex taper and is tolerating well. No adverse reaction noted. Patient is a 41 y.o male admitted for Opiate dependence. Patient on isolation. Patient did not receive any PRN medications during my shift. Last COWS 5. Closely monitor symptoms of withdrawal. Vitals monitored closely and noted within normal limits. Patient Is compliant with medications and treatment plan. Patient remained stable. Patient shows no s/s of distress. Patient slept for a total of 7 hour. Fluid intake 1402ml. Voided 3x with 2x bowel movement. All needs attended & met. Safety measures in place. Will continue to monitor patient. Addendum: 04/07/17 at 0705 by LAITH HALE RN ERROR:Disregard Note
--- NOTE | 2017-04-07 07:04 | NUR ---
End of Shift Note: Patient had an uneventful night. Patient continues on a 5-day Subutex taper and is tolerating well. No adverse reaction noted. Patient is a 41 y.o male admitted for Opiate dependence. Patient on isolation. Patient received PRN Immodium during my shift. Last COWS 5. Closely monitor symptoms of withdrawal. Vitals monitored closely and noted within normal limits. Patient Is compliant with medications and treatment plan. Patient remained stable. Patient shows no s/s of distress. Patient slept for a total of 7 hour. Fluid intake 1402ml. Voided 3x with 2x bowel movement. All needs attended & met. Safety measures in place. Will continue to monitor patient.
--- NOTE | 2017-04-07 07:57 | NUR ---
nursing notes: received pt in room awake, alert, oriented x4 verbally responsive,RBKA, but has posthetic leg is able to ambulate, he is BRP, taken pos fluids, c/o cough on and off, continue on isolation, c/o diarrhea had x1 stool now and requested imodiun, no tremors, no c/o N/V, will continue monitoring s/s of withdrawal.
[2017-04-07] MEDS: FAMOTIDINE 20 MG TABLET PO SCH (08:30)
[2017-04-07] MEDS: GABAPENTIN 300 MG CAPSULE PO SCH ×5 (08:30→20:21)
[2017-04-07] MEDS: LACTOBACILLUS RHAMNOSUS GG 1 EACH CAPSULE PO SCH ×2 (08:30→20:23)
[2017-04-07] MEDS: BACLOFEN 20 MG TABLET PO SCH ×4 (08:31→20:22)
[2017-04-07] MEDS: CLONIDINE HCL 0.1 MG TABLET PO SCH ×4 (08:33→20:23)
[2017-04-07] MEDS: OSELTAMIVIR PHOSPHATE 75 MG CAPSULE PO SCH ×2 (08:36→20:22)
[2017-04-07 08:40] VITALS: BP 122/87
[2017-04-07] MEDS ORDERED: BUPRENORPHINE HCL 2 MG TAB.SUBL SL SCH (09:00)
[2017-04-07] MEDS: KETOROLAC TROMETHAMINE 30 MG INJ IM PRN (11:16)
--- NOTE | 2017-04-07 11:25 | NUR ---
Pt c/o pain to RLE and was medicated with 30 mg of toradol im, pt in bed feels depress, does not want to talk abpout, remains isolative in room, was seen by Dr Juanis middleton he said for his part isolation can be dc but is ID nurse who will made decision, awaiting for ID nurse to f/u.
[2017-04-07 12:35] VITALS: BP 136/88
--- NOTE | 2017-04-07 13:01 | NUR ---
pT IN ROOM ISOLATIVE 1300 MEDS WERE GIVEN TO HIM HE ASKED IF MD HAS CALLED HIS AND HE WAS TOLD WE DO NOT KNOW, PT REFUSED TO TAKE HIS MEDS UNTIL MD CALL HIS WILL F/U WITH MD, PPT DENIES ANY PAIN AT THIS TIME, AND LOOKS SAD AND ANXIOUS WILL KEEP MONITORING S/S OF DISTRESS.
--- NOTE | 2017-04-07 13:25 | NUR ---
Dr Olivarez was contacted by CN about pt's statement, md reply that he try to call pt's but was unable to talk to her, also ID nurse was called regarding isolation, awaiting for nurse to f/u pt feels isolative, in room.
[2017-04-07] MEDS ORDERED: DIPH50CA37 PO (13:50)
[2017-04-07] MEDS ORDERED: GABA-534 PO (13:50)
[2017-04-07] MEDS ORDERED: DICY20TA28 PO (13:50)
[2017-04-07] MEDS ORDERED: DICL75TA5 PO (13:50)
[2017-04-07] MEDS ORDERED: CLON0.1T14 PO (13:50)
[2017-04-07] MEDS ORDERED: HYDR-3895 PO (13:50)
[2017-04-07] MEDS ORDERED: OSEL75CA PO (13:50)
[2017-04-07] MEDS ORDERED: BACL20TA PO (13:50)
[2017-04-07] MEDS ORDERED: QUET25TA PO (13:50)
--- NOTE | 2017-04-07 14:50 | NUR ---
Infection control nurse came to unit and spoke with pt, still wants pt to be on isolation, pt is upset, and still refusing meds till md call his , Dr Olivarez got in touch of infection control nurse and ok for pt to be off room, call his and to go outside patio wearing a mask and made sure to wash his hand, still waiting for MD to call pt's , pt understand all procedure to protect him and others for any infection.
--- NOTE | 2017-04-07 15:00 | NUR ---
Pt refused 1500 meds, he stated " I will not take any meds till Dr speaks to my , she is available, she is not working today", was called and he said that he did call pt's but she was not home at that time.
--- NOTE | 2017-04-07 15:10 | NUR ---
Infection control nurse spoke with Dr Olivarez and discuss with him pt's case and pt is no longer on isolation per md and per Infection control nurse, but pt need to wear a mask and make sure he wash his hands, also pt was taken to dc office so he can call his but unable pt's was not home.
[2017-04-07 16:00] VITALS: BP 175/106
--- NOTE | 2017-04-07 17:10 | NUR ---
Pt refused 1700 meds, pt is able to go to patio now and has orders to dc tomorrow.
[2017-04-07 17:41] VITALS: BP 149/102
--- NOTE | 2017-04-07 17:41 | NUR ---
Pt's b/p at 1600 was 175/106, pt refused his 1500 clonidine, because pt wants md to talk to his , MD spoke with his and also pt spoke her too, now pt was told about his b/p being elevated and agree to take his 1500 and 1700 meds, pt is calm in room having dinner, pt's pain is better, and no loose stool at this time, he is aware that he is leaving tomorrow, he asked what is going to happen there regarding his meds, was explained to him that we will send MD orders with meds orders and he probably will continue same tx or maybe some changes, pt now is complient with meds, able to let know his needs, ambulate with posthetic RLE s/p ALICIA, with hx of chronic pain, pt has been on subutex taper, now B/P 149/102 clonidine, baclofen, and neurontin dose was given.
--- NOTE | 2017-04-07 18:50 | NUR ---
START OF SHIFT NOTE: Patient is a 41 year old male admitted 0n 04/01/2017 for Oxycontin PO, Dilaudid PO, and Marijuana smoke dependence. Patient completed 5 day Subutex without ASE. Patient remains compliant with treatment, medications, and diet regime. Patient reports NKA, is on Full Code, Regular Diet, and Fall Precautions. Patient denies History of Seizures. 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 Patient reports "first time in treatment". Patient is alert and oriented x4. COWS 6. Patient c/o anxiety, agitation, nervousness, restlessness, tremors that can be felt, and sweating. VS: 97.8, HR: 87, RR:18, RA O2SAT:98%, BP: 117/78, Phantom right leg pain level:"5/10". Respirations even and unlabored. Patient denies cough, SOB, and chest pain. Lungs Sounds are clear. Bowels Sounds active in all our quadrants. Skin is warm and dry to touch. Patient has scratch on the right lower back. No open wounds noted. Abdomen is soft. Encouraged fluids intake as tolerated. Patient is scheduled for discharging tomorrow, on 04/08/2017. All needs met. Safety measures in place: Call light within reach, bed locked, and in the lowest position, bed rails up x2. Patient endorsed by outgoing day shift nurse, report received. Will continue to monitor closely.
[2017-04-07 20:00] VITALS: BP 147/98
[2017-04-07] MEDS: QUETIAPINE FUMARATE 25 MG TABLET PO SCH (20:23)
--- NOTE | 2017-04-08 | NUR ---
VS REFUSED AND COWS/CIWA DEFERRED Patient refused to be woken up for 0000 VS. COWS/CIWA deferred d/t patient sleeping to assess while patient is awake. Safety measures on place by hospital policy: Call light within reach, bed in lowest position and locked, side rails up x2. Will continue to monitor closely.
[2017-04-08 04:00] VITALS: BP 144/82
[2017-04-08] MEDS: KETOROLAC TROMETHAMINE 30 MG INJ IM PRN (04:12)
[2017-04-08] MEDS: HYDROXYZINE PAMOATE 25 MG CAPSULE PO PRN (04:12)
--- NOTE | 2017-04-08 04:12 | NUR ---
PRN TORADOL INJ (KETOROLAC TROMETHAMINE 30 MG INJ.) IM ADMINISTRATION Patient c/o phantom pain of right low leg "11/19". PRN Toradol Inj. 30 mg/1 ml a IM administrated on Right Deltoid Muscle as ordered. Patient tolerated well. All needs met. Safety measures on place. Call light within reach, bed in lowest position and locked, bed rails up bilaterally. Will continue to monitor closely.
[2017-04-08] MEDS: METHOCARBAMOL 750 MG TABLET PO PRN (04:13)
--- NOTE | 2017-04-08 04:13 | NUR ---
PRN VISTARIL 25 MG 1 CAP PO AND PRN ROBAXIN 750 MG 1 TAB PO ADMINISTRATION PRN Vistaril 25 mg 1 capsule PO administrated for anxiety and PRN Robaxin 750 mg 1 tab PO administrated for myalgia with full glass of water as ordered. Patient tolerated well. All needs met. Safety measures on place. Call light within reach, bed in lowest position and locked, padded rails up bilaterally. Will continue to monitor closely.
--- NOTE | 2017-04-08 04:42 | NUR ---
RE-ASSESSMENT Patient is sleeping. Respirations even and unlabored. PRN Toradol Inj 30 mg/1 ml IM administrated @0412 was effective. All needs met. Safety measures on place. Call light within reach, bed in lowest position and locked, padded rails up bilaterally rails up bilaterally. Will continue to monitor closely.
--- NOTE | 2017-04-08 05:13 | NUR ---
RE-ASSESSMENT Patient is sleeping. RR 15. Respirations even and unlabored. PRN Vistaril 25 mg 1 capsule PO administrated for anxiety and PRN Robaxin 750 mg 1 tab PO administrated for myalgia @0413 were effective. All needs met. Safety measures on place. Call light within reach, bed in lowest position and locked, padded rails up bilaterally rails up bilaterally. Will continue to monitor closely.
--- NOTE | 2017-04-08 06:55 | NUR ---
END OF SHIFT NOTE: 41 year old male presented for Opioid and Marijuana dependence, completed 5 day Subutex without ASE. Patient remains compliant with treatment, medications, and diet regime. Patient reports NKA, is on Full Code, Regular Diet, and Fall Precautions. Patient denies History of Seizures. 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 Last COWS 11 @0400. Last VS @0400: 97.8, HR: 87, RR:18, RA O2SAT:98%, BP: 117/78, c/o Phantom right leg pain level:"5/10". Respirations even and unlabored. Patient denies cough, SOB, and chest pain. Skin is warm and dry to touch. Patient has scratch on the right lower back. No open wounds noted. Encouraged fluids intake as tolerated. Patient is scheduled for discharging today, 04/08/2017. PRN Toradol Inj 30 mg/1 ml IM administrated for phantom right low leg pain level "9/10" @0412, PRN Vistaril 25 mg 1 capsule PO administrated for anxiety @0413, and PRN Robaxin 750 mg 1 tab PO administrated for myalgia @0413 were effective. Patient slept 6 hours, intake 3,500 ml, voided x5. All needs met. Safety measures on place. Call light within reach, bed in lowest position and locked, bed rails up bilaterally. Patient endorsed to day shift nurse. Report given.
--- NOTE | 2017-04-08 07:32 | NUR ---
START OF SHIFT PT IS A/O X4, RESPIRATIONS EVEN AND UNLABORED. PT REPORTS NO NAUSEA, SOB, CHEST PAIN. PT REPORTS RIGHT LOWER LEG PAIN BUT REPORTS IT IS MANAGEABLE AFTER RECEIVING THE TORADOL IM INJ THIS MORNING. PT IS TO BE D/C TODAY. BED IN LOWEST POSITION, SIDE RAILS UP X2. CALL LIGHT WITHIN REACH. FALL AND SAFETY PRECAUTIONS TAKEN. WILL CONTINUE TO MONITOR AND PROVIDE SUPPORT.
[2017-04-08 08:00] VITALS: BP 143/84
[2017-04-08] MEDS: LACTOBACILLUS RHAMNOSUS GG 1 EACH CAPSULE PO SCH (08:49)
[2017-04-08] MEDS: GABAPENTIN 300 MG CAPSULE PO SCH (08:49)
[2017-04-08] MEDS: FAMOTIDINE 20 MG TABLET PO SCH (08:49)
[2017-04-08 08:50] VITALS: BP 142/84
[2017-04-08] MEDS: BACLOFEN 20 MG TABLET PO SCH (08:50)
[2017-04-08] MEDS: CLONIDINE HCL 0.1 MG TABLET PO SCH (08:50)
--- NOTE | 2017-04-08 11:09 | NUR ---
PT DISCHARGED IN STABLE CONDITION. VS WNL. PT A/O X4, SKIN INTACT. PT DENIES ANY SI/HI. ALL D/C PAPERWORK COMPLETED, DATED AND SIGNED. PT EDUCATION ABOUT D/C INSTRUCTIONS, WHAT TO DO AFTER D/C WHEN TO CONTACT MD AND WELL THE REPORTABLE S/S TO MD. PT VERBALIZED UNDERSTANDING. PT LAST COWS WAS 5 AT 0800. PT WAS DISCHARGED FROM [facility] ON 04/08/17 AT 1055. PT LEFT THE BUILDING WITH ALL BELONGINGS, MEDICATIONS, D/C PACKET. MD HAS BEEN CONTACT AND MADE AWARE OF PT D/C.
== END 2017-04-08 11:05 | disposition other institution (70) | DRG 895 ==
LOC: SRC 22:09
PROVIDERS: ADMIT Internal Medicine; ATTEND Internal Medicine
PROC: HZ2ZZZZ Detoxification Services for Substance Abuse Treatment (ICD-10-PCS; principal; 2017-04-01)
PROC: HZ41ZZZ Group Counseling for Substance Abuse Treatment, Behavioral (ICD-10-PCS; 2017-04-02)
PROC: HZ31ZZZ Individual Counseling for Substance Abuse Treatment, Behavioral (ICD-10-PCS; 2017-04-03)
DX: F11.23 Opioid dependence with withdrawal (principal); I15.9 Secondary hypertension, unspecified; F12.90 Cannabis use, unspecified, uncomplicated; F17.210 Nicotine dependence, cigarettes, uncomplicated; F41.9 Anxiety disorder, unspecified; G89.4 Chronic pain syndrome; Z89.511 Acquired absence of right leg below knee; Z82.49 Family history of ischemic heart disease and other diseases of the circulatory system; Z80.8 Family history of malignant neoplasm of other organs or systems; G47.00 Insomnia, unspecified; V89.2XXS Person injured in unspecified motor-vehicle accident, traffic, sequela; F32.9 Major depressive disorder, single episode, unspecified; J11.1 Influenza due to unidentified influenza virus with other respiratory manifestations
CPT/HCPCS: 36415; 70030-TC; 71010; 80307; 80349; 80361; 83605; 83735; 85025; 86580; 86592; 86705; 86803; 87040; 87070; 87340; 87400; 87806; G0480; J1885; J2543; J3370; J7030; J7060; Q0162